=== PATIENT | female | born 1960 | race Caucasian/White ===

== ENCOUNTER 2017-02-16 17:45 | Inpatient (IN) | payer OTHER ==
[2017-02-16 19:02] VITALS: O2SAT 94
[2017-02-16 20:00] VITALS: BP_SYST 105; BP_SYST 121; BP_DIAS 63; BP_DIAS 67; PULSE 54; RESP 16; O2SAT 94
[2017-02-16 21:00] VITALS: BP_SYST 123; BP_SYST 128; BP_DIAS 68; BP_DIAS 76; PULSE 54; RESP 16; O2SAT 93
[2017-02-16 22:00] VITALS: BP_SYST 121; BP_SYST 127; BP_DIAS 73; BP_DIAS 75; PULSE 53; RESP 16; O2SAT 89
[2017-02-16 22:02] VITALS: O2SAT 90
[2017-02-16 23:00] VITALS: BP_SYST 129; BP_SYST 133; BP_DIAS 81; BP_DIAS 83; PULSE 52; RESP 16; O2SAT 92
[2017-02-16] MEDS ORDERED: VASOPRESSIN 80 U/NS 100 ML Titrate per Translife Protocol IV SCH ×2 (23:15)
[2017-02-16] MEDS ORDERED: DEXTROSE 50% IN WATER 50 ML VIAL(D50) IV SCH (23:15)
[2017-02-16] MEDS ORDERED: LEVOTHYROXINE 400 MCG/NS 500 ML IV SCH ×2 (23:15)
[2017-02-16] MEDS: ceFAZolin 1,000 MG/NS 100 ML IV SCH ×2 (23:15)
[2017-02-16] MEDS ORDERED: LEVOTHYROXINE SODIUM 100 MCG VIAL IV PUSH ONE (23:15)
[2017-02-16] MEDS ORDERED: DOPamine INJ 400 MG in SODIUM CHLOR 0.9% 250 ML INJ 250 ML IV PRN (23:15)
[2017-02-16] MEDS ORDERED: INSULIN HUMAN REGULAR 1,000 UNITS/10 ML VIAL IV PUSH SCH (23:15)
[2017-02-16] MEDS ORDERED: WATER STERILE FOR IV ONE (23:30)
[2017-02-16] MEDS ORDERED: METHYLPREDNISOLONE SO SUCC IV ONE (23:30)
[2017-02-17] VITALS (65 sets, daily range): BP systolic 100–172; BP diastolic 62–92; PULSE 51–84; RESP 16–45; TEMP 93.9–97.8; O2SAT 90–98
[2017-02-17] MEDS ORDERED: SODIUM CHLORIDE 23.4% INJ 38.5 MEQ in WATER STERILE FOR INJ 990.375 ML IV ONE (00:30)
[2017-02-17] MEDS: 1/2 NS + KCL 20 MEQ INJ 1,000 ML IV SCH ×2 (01:05→12:23)
[2017-02-17] MEDS ORDERED: WATER STERILE FOR IV ONE (03:30)
[2017-02-17] MEDS ORDERED: METHYLPREDNISOLONE SO SUCC IV ONE (03:30)
[2017-02-17 04:28] LABS: BLOOD GAS BASE EXCESS 2.1 mmol/L (-2-2); BLOOD GAS CARBOXYHEMOGLOBIN 1.7 % (0-4); BLOOD GAS HCO3 25 mmol/L (22-26); BLOOD GAS METHEMOGLOBIN 0.9 % (0-2); BLOOD GAS O2 HGB SATURATION 97 % (90-100); BLOOD GAS OXYGEN CONTENT 14.6 Vol % (12.0-20.0); BLOOD GAS PCO2 34 mmHg (38-42); BLOOD GAS PO2 220 mmHg (61-120); BLOOD GAS TOTAL HGB 10.3 G/DL (12.0-16.0); CRITICAL VALUE NO; OXYGEN DEVICE VENTILATOR; TEMP CORR TO 98.6
[2017-02-17 04:29] LABS: DRAW SITE ART LINE; FIO2 100 %; STAT NO; ULNAR PULSE PRESENT; VENT SETTINGS PC/AC
[2017-02-17 05:37] LABS: AUTOMATED NEUTROPHIL # 9.1 TH/MM3 (1.8-7.7); BASOPHIL % 0.2 % (0.0-2.0); EOSINOPHIL % 0.1 % (0.0-4.0); HEMO FLAGS DIFF FINAL; LYMPH % 22.5 % (9.0-44.0); LYMPHOCYTE # 2.8 TH/MM3 (1.0-4.8); MEAN CELL VOLUME 87.6 FL (80.0-100.0); MEAN CORPUSCULAR HEMOGLOBIN 28.8 PG (27.0-34.0); MEAN CORPUSCULAR HGB CONC 32.9 % (32.0-36.0); MONO % 3.3 % (0.0-8.0); NEUT % 73.9 % (16.0-70.0); PLATELET COUNT 185 TH/MM3 (150-450); RED BLOOD COUNT 3.54 MIL/MM3 (4.00-5.30); RED CELL DISTRIBUTION WIDTH 14.3 % (11.6-17.2); WHITE BLOOD COUNT 12.3 TH/MM3 (4.0-11.0)
[2017-02-17 05:51] LABS: APTT (PATIENT) 24.3 SEC (24.3-30.1); PROTHROMBIN TIME - PATIENT 11.4 SEC (9.8-11.6)
[2017-02-17] MEDS: METHYLPREDNISOLONE SO SUCC IV SCH ×2 (05:59→14:46)
[2017-02-17] MEDS: SODIUM CHLORIDE 0.9% IV SCH ×2 (05:59→14:46)
[2017-02-17 06:10] LABS: ALKALINE PHOSPHATASE 132 U/L (45-117); ALT (GPT) 229 U/L (10-53); ANION GAP 8 MEQ/L (5-15); AST (GOT) 148 U/L (15-37); BICARBONATE 29.2 MEQ/L (21.0-32.0); BLOOD UREA NITROGEN 23 MG/DL (7-18); CHLORIDE 123 MEQ/L (98-107); GLOMERULAR FILTRATION RATE 76 ML/MIN (>89); MAGNESIUM 2.5 MG/DL (1.5-2.5); POTASSIUM 3.8 MEQ/L (3.5-5.1); TOTAL BILIRUBIN ADULT 0.9 MG/DL (0.2-1.0)
[2017-02-17] MEDS ORDERED: ALBUMIN HUMAN 25% 25 GM/100 ML BAGP IV ONE (06:15)
[2017-02-17] MEDS ORDERED: FUROSEMIDE 20 MG/2 ML VIAL IV ONE (06:15)
[2017-02-17 06:29] LABS: SODIUM (NA) 160 MEQ/L (136-145)
[2017-02-17] MEDS ORDERED: DEXTROSE 5% IN WATE 1000ML INJ 1,000 ML IV ONE (07:00)
[2017-02-17] MEDS: ceFAZolin 1,000 MG/NS 100 ML IV SCH ×4 (08:09→15:16)
[2017-02-17 10:03] LABS: BACTERIA, URINE RARE /hpf; BLOOD, URINE MOD (NEG); COMMENT (UR) CATH-CULTURE IND; CULTURE IF INDICATED CATH CULTURE IND; GLUCOSE,URINE TRACE mg/dL (NEG); KETONE, URINE NEG (NEG); MUCUS URINE FEW /lpf (OCC); NITRITE,URINE NEG (NEG); SQUAMOUS EPITHELIAL CELL URINE 2 /hpf (0-5); TRANSITIONAL EPI CELLS, URINE <1 /hpf; URINE COLOR LIGHT-YELLOW (YELLW/STRAW)
[2017-02-17 10:35] LABS: BICARBONATE 28.3 MEQ/L (21.0-32.0); MAGNESIUM 2.5 MG/DL (1.5-2.5); POTASSIUM 3.6 MEQ/L (3.5-5.1)
[2017-02-17] MEDS ORDERED: GLUCAGON 1 MG/ML VIAL OTHER PRN (11:30)
[2017-02-17] MEDS ORDERED: DEXTROSE 50% IN WATER 50 ML VIAL(D50) IV PUSH PRN (11:30)
[2017-02-17] MEDS ORDERED: ICU - MAGNESIUM SULFATE 2 GM/NS 100 ML IV PRN ×2 (12:00)
[2017-02-17] MEDS ORDERED: ICU - POTASSIUM CHLORIDE/AQUEOUS SOLN 40 MEQ/100 ML IVPB IV PRN (12:00)
[2017-02-17] MEDS ORDERED: ICU - POTASSIUM PHOSPHATE 30 MMOL/NS 250 ML IV PRN ×2 (12:00)
[2017-02-17] MEDS ORDERED: POTASSIUM CHLORIDE 25 MEQ EFFERVESCENT TAB PO PRN (12:00)
[2017-02-17] MEDS ORDERED: ICU - D/C ICU ELECTROLYTE ORDERS PRN (12:00)
[2017-02-17] MEDS ORDERED: ICU - SODIUM PHOSPHATE 30 MMOL/NS 250 ML IV PRN ×2 (12:00)
[2017-02-17] MEDS ORDERED: ICU - MAGNESIUM OXIDE 400 MG TAB PO PRN (12:00)
[2017-02-17] MEDS ORDERED: ICU - POTASSIUM PHOSPHATE MONOBASIC 500 MG TAB PO PRN (12:00)
[2017-02-17] MEDS ORDERED: ICU - POTASSIUM CHLORIDE/AQUEOUS SOLN 20 MEQ/100 ML IVPB IV PRN (12:00)
[2017-02-17] MEDS ORDERED: ICU - MAGNESIUM SULFATE 4 GM/NS 100 ML IV PRN ×2 (12:00)
[2017-02-17] MEDS ORDERED: POTASSIUM CHLOR 40 MEQ PREMIX 100 ML IV ONE (12:00)
[2017-02-17] MEDS ORDERED: ICU - CALL ORDERING PHYSICIAN PRN (12:00)
[2017-02-17] MEDS ORDERED: PLEASE DISCONTINUE PREVIOUS SUPPLEMENTAL SCALE INSULIN ORDERS ONE (12:00)
[2017-02-17 13:58] LABS: APTT (PATIENT) 23.7 SEC (24.3-30.1)
[2017-02-17 13:59] LABS: PROTHROMBIN TIME - PATIENT 10.9 SEC (9.8-11.6)
[2017-02-17 14:00] LABS: BICARBONATE 30.1 MEQ/L (21.0-32.0); MAGNESIUM 2.6 MG/DL (1.5-2.5); POTASSIUM 3.6 MEQ/L (3.5-5.1)
[2017-02-17] MEDS ORDERED: D5W + KCL 20 MEQ INJ 1,000 ML IV SCH (14:30)
[2017-02-17] MEDS ORDERED: metroNIDAZOLE 500 MG INJ 100 ML IV ONE (15:15)
[2017-02-17 15:43] LABS: BLOOD GAS BASE EXCESS 3.2 mmol/L (-2-2); BLOOD GAS CARBOXYHEMOGLOBIN 1.7 % (0-4); BLOOD GAS HCO3 26 mmol/L (22-26); BLOOD GAS METHEMOGLOBIN 1.2 % (0-2); BLOOD GAS O2 HGB SATURATION 96 % (90-100); BLOOD GAS PCO2 34 mmHg (38-42); BLOOD GAS PO2 113 mmHg (61-120); BLOOD GAS TOTAL HGB 10.3 G/DL (12.0-16.0); CRITICAL VALUE NO; OXYGEN DEVICE VENTILATOR; TEMP CORR TO 98.6
[2017-02-17 15:44] LABS: DRAW SITE ART LINE; FIO2 90 %; STAT YES
[2017-02-17] MEDS ORDERED: MEDIUM DOSE INSULIN NOVOLIN REGULAR SUPPLEMENTAL SCALE SQ SCH (16:00)
== END 2017-02-17 17:58 | disposition expired | DRG 951 ==
LOC: HIME 17:45
DX: Z52.89 Donor of other specified organs or tissues (principal)
CPT/HCPCS: 36556; 71010; 78606; 80048; 80053; 80074; 80076; 81001; 82330; 82805; 82977; 83036; 83735; 84100; 84450; 84460; 84702; 85007; 85025; 85027; 85610; 85730; 86850; 86900; 86901; 86920; 87040; 87070; 87086; 87205; 94003; 94667; 94668; A9539; J0690; J1720; J1815; J1940; J2930; J3480; J7040; J7070; P9047